=== PATIENT | female | born 1930 | race Caucasian/White ===

== ENCOUNTER → 2016-07-22 | Outpatient (CLI) | payer MEDICARE ==
[~2016-07-22] MED LIST: B-COTAB41 PO; BENI40TA30 PO; BIOT5000 PO; CENTTAB9 PO; CLON.1 PO; DENO60P SC; EZET10; FENO50TA; FISH1000 PO; HYDR-2768 PO; LEVO.05; NORV5TAB PO; OMEP20CA5 PO; VITA500015 PO
--- NOTE | 2016-07-24 20:50 | HM ---
Date Performed: 07/23/2016 Time Performed: 11:38:00 HOOKUP DATE: 07/23/16 11:38:00 AM [facility] ANALYSIS START TIME: 07/23/2016 11:43:00 AM ANALYSIS END TIME: 07/24/2016 11:45:13 AM PATIENT AGE: 86 PATIENT HEIGHT PATIENT WEIGHT DRUG LIST PATIENT DIAGNOSIS: BRADYCARDIA TEST NARRATIVE: The patient's average heart rate was 53 BPM. No episodes of tachycardia wer e noted. Heart rates less than 50 BPM were noted 62% of the time. The longest pause of 2.1 seco nds occurred at 06:03:42 AM Fri. 1 ventricular ectopics, which represented < 1% of the total beat count, were noted. The highest ventricular ectopic frequency occurred from 05:00 PM to 06:00 PM Shereen . During this time 1 VE(s) occurred. Ventricular ectopics were observed as 1 isolated beat(s) only. No couplets or runs were noted. 2863 supraventricular ectopics, which represented 4% of the tot al beat count, were noted. The highest supraventricular ectopic frequency occurred from 01:00 PM to 02:00 PM Sehreen. During this time 380 SVE(s) occurred. No episodes of ST depression (defined as -1. 0 mm or more) were noted in channel 1. No episodes of ST depression (defined as -1.0 mm or more) wer e noted in channel 2. In channel 3, a single episode of ST depression (defined as -1.0 mm or more) o ccurred at 12:17:24 PM Shereen with a maximum depression of -2.2 mm. No diary entries made by patient. TEST INTERPRETATION: Patient is in Sinus rhythm throughout the recording. The average HR is 53 with a minimum HR of 33 at 0603 and a peak HR of 98 a t 1254. There is only one ventricular premature beat. There are frequent atrial premature beats, incl uding 493 atrial couples and 21 runs of atrial tachycardia between 3-4 beats long. Fastest rate of 18 8 and slowest rate of 120. Diary is returned blank. Sinus rhythm throughout the recording but with br adycardia down to 33 bpm. Frequent atrial premature beats, and 21 runs of atrial tachycardia. Signed by : Davis Dahl
== END ==
LOC: HCAV 12:46
PROVIDERS: ATTEND Family Medicine
DX: R00.1 Bradycardia, unspecified (principal)
CPT/HCPCS: 93225; 93226